=== PATIENT | female | born 1935 | race Caucasian/White ===

== ENCOUNTER 2018-10-18 17:55 | Emergency (ER) | payer MEDICARE ==
[~2018-10-18] VITALS: Ht 162.6 cm; Wt 56.7 kg
--- NOTE | 2018-10-18 17:55 | NUR ---
Pt ambulated to ER registration, was placed in a w/c and brought directly to room 1a. and nursing staff at bedside on arrival.
[2018-10-18] MEDS ORDERED: CALC-36 PO (18:14)
[2018-10-18] MEDS ORDERED: SITA50TA PO (18:14)
[2018-10-18] MEDS ORDERED: OLME1TAB22 PO (18:14)
[2018-10-18] MEDS ORDERED: ASPI81TA31 PO (18:14)
[2018-10-18] MEDS ORDERED: RASA1TAB PO (18:14)
[2018-10-18] MEDS ORDERED: ATOR20TA PO (18:14)
[2018-10-18] MEDS ORDERED: METF-442 PO (18:14)
[2018-10-18] MEDS ORDERED: POTASSIUM PO (18:14)
[2018-10-18] MEDS ORDERED: AMLO10TA7 PO (18:14)
[2018-10-18] MEDS ORDERED: CETI-102 PO (18:14)
[2018-10-18] MEDS ORDERED: CARB1TAB21 PO (18:14)
[2018-10-18 18:20] LABS: BASOPHILS # (AUTO) 0.1 K/uL (0.0-8.0); BASOPHILS % (AUTO) 0.8 % (0.0-2.0); EOSINOPHILS # (AUTO) 0.1 K/uL (0.0-0.7); EOSINOPHILS % (AUTO) 0.9 % (0.0-7.0); HEMATOCRIT 43.2 % (31.2-41.9); HEMOGLOBIN 14.6 g/dL (10.9-14.3); LYMPHOCYTES % (AUTO) 24.4 % (20.5-51.5); MEAN CORPUSCULAR HEMOGLOBIN 29.5 uug (24.7-32.8); MEAN CORPUSCULAR HGB CONC 34 g/dL (32.3-35.6); MEAN CORPUSCULAR VOLUME 87.2 fL (75.5-95.3); MONOCYTES # (AUTO) 0.5 K/uL (2.0-10.0); MONOCYTES % (AUTO) 6.5 % (0.0-11.0); NEUTROPHILS # (AUTO) 5.6 K/uL (1.8-8.9); NEUTROPHILS % (AUTO) 67.4 % (38.5-71.5); PLATELET COUNT (AUTO) 300 K/uL (179-408); RED BLOOD CELL COUNT(AUTO) 4.96 MIL/uL (3.63-4.92); WHITE BLOOD COUNT (AUTO) 8.3 K/uL (3.8-11.8)
--- NOTE | 2018-10-18 18:26 | NUR ---
PATIENT IS ON A MONITOR. SHE IS A/A/OX3. STATES STILL FELLS SHAKY AND NERVOUS. AWAITING TEST RESULTS.
[2018-10-18 18:29] LABS: CARBON DIOXIDE 28 mmol/L (21-32); CHLORIDE 98 mmol/L (98-107); CREATININE 0.8 mg/dL (0.6-1.3); GLUCOSE 150 mg/dL (74-106); POTASSIUM 3.5 mmol/L (3.5-5.1); UREA NITROGEN, BLOOD 19 mg/dL (7-18)
[2018-10-18 18:34] LABS: ALANINE AMINOTRANSFERASE 7 U/L (14-59); ALKALINE PHOSPHATASE 96 U/L (50-136); ASPARTATE AMINOTRANSFERASE 13 U/L (15-37); BILIRUBIN,DIRECT 0.1 mg/dL (0.0-0.2); BILIRUBIN,TOTAL 0.8 mg/dL (0.2-1.0); TOTAL PROTEIN, SERUM 7.3 g/dL (6.4-8.2)
--- NOTE | 2018-10-18 18:42 | NUR ---
PATIENT WAS ON THE BEDSIDE COMMODE. URINE SENT TO LAB. 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
[2018-10-18 18:50] LABS: *BILIRUBIN,URIN NEGATIVE (NEGATIVE); *BLOOD, URINE NEGATIVE (NEGATIVE); *COLOR,URINE DARK YELLOW (YELLOW); *KETONES,URINE 1+ (NEGATIVE); *UROBILINOGEN,URINE 0.2 E.U./dl (NORMAL); LEUKOCYTE ESTERASE ,URINE 1+ (NEGATIVE); NITRITE, URINE NEGATIVE (NEGATIVE); UGLUCOSE NEGATIVE (NEGATIVE)
[2018-10-18 18:53] LABS: *CLARITY,URINE HAZY (CLEAR)
[2018-10-18 18:55] LABS: MUCUS,URINE MANY /LPF (0-FEW); SQUAMOUS EPITHELIAL CELL,UR FEW /HPF (NONE SEEN); WBC,URINE 20-50 /HPF (0-3)
--- NOTE | 2018-10-18 19:00 | NUR ---
Received pt. in bed 1A and is in cat scan right now.
--- NOTE | 2018-10-18 19:10 | NUR ---
HAND OFF REPORT GIVEN TO RACQUEL KELLOGG
--- NOTE | 2018-10-18 19:37 | NUR ---
Pt. back from cat scan A/O x 4 in bed 1A. Speaks clearly in full complete sentences and denies any pain. Lying supine on gurney with HOB elevated 45 degrees.
--- NOTE | 2018-10-18 19:40 | NUR ---
Escorted pt. to and from the bathroom behind the nurse's station with steady gait both ways and now stated to this television script writer as she sat down on the gurney in bed 1A she is a little dizzy. Dr. Waters made aware.
[2018-10-18] MEDS ORDERED: MECLIZINE HCL 25 MG TABLET PO ONE (19:45)
[2018-10-18] MEDS ORDERED: IV NORMAL SALINE 500 ML BAG IV ONE (19:45)
[2018-10-18] MEDS ORDERED: CEFTRIAXONE 1 G in IV DEXTROSE 5% 50 ML IV ONE (19:45)
[2018-10-18] MEDS ORDERED: MECLIZINE HCL 25 MG TABLET ONE (20:02)
[2018-10-18] MEDS ORDERED: CEFTRIAXONE 1 G VIAL ONE (20:08)
--- NOTE | 2018-10-18 20:50 | NUR ---
IV noted to be leaking around the site, site discovered to be actively bleeding at venipuncture site below the IV site. Catheter intact and site benign. Pressure and 4x4 gauze applied to site. No further bleeding noted. IV positioned and infused remainder of ordered medications except NS which patient refused.
[2018-10-18 20:54] VITALS: BP 157/79
--- NOTE | 2018-10-18 21:04 | NUR ---
IV removed. Catheter intact and site benign. Pressure and 4x4 gauze applied to site. No bleeding noted.
--- NOTE | 2018-10-18 21:05 | NUR ---
Patient discharged to home in stable conditon. Written and verbal after care instructions given. Patient verbalizes understanding of instructions.
== END 2018-10-18 21:06 | disposition home or self-care (01) ==
LOC: ER 17:56
DX: H81.10 Benign paroxysmal vertigo, unspecified ear (principal); N39.0 Urinary tract infection, site not specified; E78.5 Hyperlipidemia, unspecified; E11.9 Type 2 diabetes mellitus without complications; Z79.82 Long term (current) use of aspirin; Z79.899 Other long term (current) drug therapy
CPT/HCPCS: 36415; 70450; 71045; 80048; 80076; 81001; 83880; 84443; 84484; 85025; 85730; 87040; 87086; 93005; 96365; 99284; J0696; 70030-TC; A4663; J7040; J8597

== ENCOUNTER 2018-12-04 16:30 | Inpatient (IN) | payer MEDICARE ==
[~2018-12-04] VITALS: Ht 162.6 cm; Wt 62.6 kg
[2018-12-04] VITALS: BP 151/61
[~2018-12-04 16:30] MED LIST: AMLO10TA7 PO; ASPI81TA31 PO; ATOR20TA PO; CALC-36 PO; CARB1TAB21 PO; CETI-102 PO; METF-442 PO; OLME1TAB22 PO; POTASSIUM PO; RASA1TAB PO; SITA50TA PO
[2018-12-04] MEDS ORDERED: POTA-88 PO (17:09)
[2018-12-04 17:10] LABS: BASOPHILS # (AUTO) 0.1 K/uL (0.0-8.0); BASOPHILS % (AUTO) 0.7 % (0.0-2.0); EOSINOPHILS # (AUTO) 0.1 K/uL (0.0-0.7); EOSINOPHILS % (AUTO) 0.7 % (0.0-7.0); HEMATOCRIT 42.1 % (31.2-41.9); HEMOGLOBIN 14.3 g/dL (10.9-14.3); LYMPHOCYTES # (AUTO) 1.4 K/uL (20.0-40.0); LYMPHOCYTES % (AUTO) 17.4 % (20.5-51.5); MEAN CORPUSCULAR HEMOGLOBIN 29.5 uug (24.7-32.8); MEAN CORPUSCULAR HGB CONC 34 g/dL (32.3-35.6); MEAN CORPUSCULAR VOLUME 87.2 fL (75.5-95.3); MONOCYTES # (AUTO) 0.5 K/uL (2.0-10.0); MONOCYTES % (AUTO) 6.2 % (0.0-11.0); NEUTROPHILS # (AUTO) 6.2 K/uL (1.8-8.9); PLATELET COUNT (AUTO) 308 K/uL (179-408); RED BLOOD CELL COUNT(AUTO) 4.82 MIL/uL (3.63-4.92); WHITE BLOOD COUNT (AUTO) 8.2 K/uL (3.8-11.8)
[2018-12-04] MEDS ORDERED: IV NORMAL SALINE 1000 ML BAG IV ONE (17:15)
[2018-12-04 17:16] LABS: CARBON DIOXIDE 27 mmol/L (21-32); CHLORIDE 102 mmol/L (98-107); CREATININE 0.8 mg/dL (0.6-1.3); GLUCOSE 174 mg/dL (74-106); POTASSIUM 3.4 mmol/L (3.5-5.1); UREA NITROGEN, BLOOD 16 mg/dL (7-18)
[2018-12-04 17:18] LABS: *BILIRUBIN,URIN NEGATIVE (NEGATIVE); *BLOOD, URINE NEGATIVE (NEGATIVE); *CLARITY,URINE CLEAR (CLEAR); *COLOR,URINE YELLOW (YELLOW); *KETONES,URINE 1+ (NEGATIVE); *UROBILINOGEN,URINE 0.2 E.U./dl (NORMAL); LEUKOCYTE ESTERASE ,URINE NEGATIVE (NEGATIVE); NITRITE, URINE NEGATIVE (NEGATIVE); UGLUCOSE NEGATIVE (NEGATIVE)
[2018-12-04 17:29] LABS: MUCUS,URINE MODERATE /LPF (0-FEW); SQUAMOUS EPITHELIAL CELL,UR FEW /HPF (NONE SEEN)
[2018-12-04 17:33] LABS: ALANINE AMINOTRANSFERASE 6 U/L (14-59); ALKALINE PHOSPHATASE 123 U/L (50-136); ASPARTATE AMINOTRANSFERASE 20 U/L (15-37); BILIRUBIN,DIRECT 0.2 mg/dL (0.0-0.2); BILIRUBIN,TOTAL 0.7 mg/dL (0.2-1.0); TOTAL PROTEIN, SERUM 7.4 g/dL (6.4-8.2)
[2018-12-04] MEDS ORDERED: ACETAMINOPHEN 325 MG TABLET PO PRN (18:15)
[2018-12-04] MEDS ORDERED: SWABABLE VALVE TRANSFER SET EA MC ONE (18:29)
[2018-12-04] MEDS ORDERED: IV NORMAL SALINE 250 ML IV ONE (18:29)
[2018-12-04] MEDS ORDERED: IOHEXOL 350 100 ML INFUS..BTL ONE (18:29)
[2018-12-04] MEDS ORDERED: ASPIRIN 325 MG TABLET PO ONE (18:45)
[2018-12-04] MEDS ORDERED: ASPIRIN 325 MG TABLET ONE (19:07)
[2018-12-04 21:00] VITALS: BP 157/73
[2018-12-05] MEDS ORDERED: MELATONIN 3 MG TABLET PO PRN (01:00)
[2018-12-05 05:51] LABS: BASOPHILS # (AUTO) 0.1 K/uL (0.0-8.0); BASOPHILS % (AUTO) 0.8 % (0.0-2.0); EOSINOPHILS # (AUTO) 0.1 K/uL (0.0-0.7); EOSINOPHILS % (AUTO) 0.7 % (0.0-7.0); HEMATOCRIT 41.1 % (31.2-41.9); HEMOGLOBIN 13.7 g/dL (10.9-14.3); LYMPHOCYTES # (AUTO) 1.5 K/uL (20.0-40.0); LYMPHOCYTES % (AUTO) 18.5 % (20.5-51.5); MEAN CORPUSCULAR HGB CONC 33 g/dL (32.3-35.6); MEAN CORPUSCULAR VOLUME 87.1 fL (75.5-95.3); MONOCYTES # (AUTO) 0.5 K/uL (2.0-10.0); MONOCYTES % (AUTO) 6.1 % (0.0-11.0); NEUTROPHILS % (AUTO) 73.9 % (38.5-71.5); PLATELET COUNT (AUTO) 305 K/uL (179-408); RED BLOOD CELL COUNT(AUTO) 4.72 MIL/uL (3.63-4.92); WHITE BLOOD COUNT (AUTO) 8.1 K/uL (3.8-11.8)
[2018-12-05 06:01] LABS: CARBON DIOXIDE 27 mmol/L (21-32); CHLORIDE 104 mmol/L (98-107); CREATININE 0.8 mg/dL (0.6-1.3); GLUCOSE 153 mg/dL (74-106); POTASSIUM 3.3 mmol/L (3.5-5.1); UREA NITROGEN, BLOOD 14 mg/dL (7-18)
[2018-12-05 06:26] LABS: THYROID STIMULATING HORMONE 1.633 mIU/mL (0.358-3.740)
[2018-12-05] MEDS ORDERED: ASPIRIN 81 MG TAB.CHEW PO SCH (09:00)
[2018-12-05] MEDS ORDERED: Medication Not On Formulary EA (Olmesartan/Hydrochlorothiazide (Benicar Hct 40-25 Mg Tab PO SCH (09:00)
[2018-12-05] MEDS ORDERED: AMLODIPINE 10 MG TABLET PO SCH (09:00)
[2018-12-05] MEDS ORDERED: VITAMIN D3 PO SCH (09:00)
[2018-12-05] MEDS ORDERED: CALCIUM CITRATE PO SCH (09:00)
[2018-12-05] MEDS ORDERED: [UNRECOGNIZED DRUG - OTHER] PO SCH (09:00)
[2018-12-05] MEDS ORDERED: HYDROCHLOROTHIAZIDE 25 MG TABLET PO SCH (09:21)
[2018-12-05] MEDS ORDERED: LOSARTAN POTASSIUM 50 MG TABLET PO SCH (09:21)
[2018-12-05] MEDS: CARBIDOPA/LEVODOPA 25-100MG TABLET PO SCH ×2 (09:29→12:26)
[2018-12-05] MEDS ORDERED: POTASSIUM CHLORIDE 20 MEQ TAB.PRT.SR PO ONE (11:00)
[2018-12-05] MEDS ORDERED: DEXTROSE 50% 50 ML DISP.SYRIN IV PRN (11:15)
[2018-12-05] MEDS ORDERED: INSULIN REGULAR, HUMAN 300 UNIT/3 ML VIAL SQ PRN (11:15)
[2018-12-05] MEDS ORDERED: BLOOD SUGAR DIAGNOSTIC 1 EACH STRIP VI SCH (11:30)
[2018-12-05] MEDS ORDERED: CALCIUM CITRA-VITAMIN D 315 MG-250 UNITS TABLET PO SCH (11:39)
[2018-12-05 11:40] VITALS: BP 159/67
[2018-12-05 11:49] LABS: BASOPHILS # (AUTO) 0.1 K/uL (0.0-8.0); BASOPHILS % (AUTO) 0.7 % (0.0-2.0); CARBON DIOXIDE 27 mmol/L (21-32); CHLORIDE 101 mmol/L (98-107); CREATININE 0.9 mg/dL (0.6-1.3); EOSINOPHILS % (AUTO) 0.6 % (0.0-7.0); GLUCOSE 246 mg/dL (74-106); HEMATOCRIT 39.3 % (31.2-41.9); HEMOGLOBIN 13.1 g/dL (10.9-14.3); LYMPHOCYTES # (AUTO) 1.5 K/uL (20.0-40.0); LYMPHOCYTES % (AUTO) 18.6 % (20.5-51.5); MEAN CORPUSCULAR HEMOGLOBIN 29.2 uug (24.7-32.8); MEAN CORPUSCULAR HGB CONC 33 g/dL (32.3-35.6); MEAN CORPUSCULAR VOLUME 87.5 fL (75.5-95.3); MONOCYTES # (AUTO) 0.6 K/uL (2.0-10.0); MONOCYTES % (AUTO) 7.2 % (0.0-11.0); NEUTROPHILS % (AUTO) 72.9 % (38.5-71.5); PLATELET COUNT (AUTO) 284 K/uL (179-408); POTASSIUM 3.4 mmol/L (3.5-5.1); RED BLOOD CELL COUNT(AUTO) 4.49 MIL/uL (3.63-4.92); UREA NITROGEN, BLOOD 18 mg/dL (7-18); WHITE BLOOD COUNT (AUTO) 8.2 K/uL (3.8-11.8)
[2018-12-05] MEDS ORDERED: CEFTRIAXONE 1 G in IV DEXTROSE 5% 50 ML IV SCH (13:00)
[2018-12-05 13:15] VITALS: BP 144/65
[2018-12-05 13:20] VITALS: BP 148/65
[2018-12-05 13:25] VITALS: BP 147/68
[2018-12-05] MEDS ORDERED: MECL-102 PO (14:10)
[2018-12-05] MEDS ORDERED: ATORVASTATIN 20 MG TABLET PO SCH (21:00)
== END 2018-12-05 15:20 | disposition home or self-care (01) | DRG 74 ==
LOC: ER 16:30 → TELE3 19:32
PROVIDERS: ADMIT Student in an Organized Health Care Education/Training Program; ATTEND Nurse Practitioner Acute Care
DX: G90.8 Other disorders of autonomic nervous system (principal); E86.0 Dehydration; E11.65 Type 2 diabetes mellitus with hyperglycemia; T50.2X5A Adverse effect of carbonic-anhydrase inhibitors, benzothiadiazides and other diuretics, initial encounter; Y92.019 Unspecified place in single-family (private) house as the place of occurrence of the external cause; G20 Parkinson's disease; E87.6 Hypokalemia; Z90.13 Acquired absence of bilateral breasts and nipples; Z85.3 Personal history of malignant neoplasm of breast; Z79.899 Other long term (current) drug therapy; Z79.82 Long term (current) use of aspirin; Z79.84 Long term (current) use of oral hypoglycemic drugs; I67.1 Cerebral aneurysm, nonruptured; I70.0 Atherosclerosis of aorta; I10 Essential (primary) hypertension; E78.5 Hyperlipidemia, unspecified
CPT/HCPCS: 36415; 70030-TC; 70450; 70496; 71045; 83605; 84443; 85025; 85730; 87086; 92526; 92610; 93005; 93307; 93880; 97116; 97165; 97530; 97535; A4663; G0378; J0696; J1815; J7030; J7050; J7060; Q9967